=== PATIENT | male | born 1985 | race Asian ===

== ENCOUNTER 2022-02-16 21:48 | Emergency (ER) | payer SELFPAY ==
[~2022-02-16] VITALS: Ht 172.7 cm; Wt 79.4 kg
[2022-02-16 22:09] VITALS: BP 143/99
--- NOTE | 2022-02-17 00:17 | NUR ---
Patient being evaluated by physician
[2022-02-17] MEDS ORDERED: NAPR-54 PO (00:19)
[2022-02-17 00:35] VITALS: BP 143/99
== END 2022-02-17 00:20 | disposition home or self-care (01) ==
LOC: MED 21:48
DX: J06.9 Acute upper respiratory infection, unspecified (principal); Z20.822 Contact with and (suspected) exposure to COVID-19
CPT/HCPCS: 99282